=== PATIENT | female | born 1985 | race Caucasian/White ===

== ENCOUNTER 2017-09-24 18:24 | Emergency (ER) | payer BC ==
[2017-09-24 18:39] VITALS: BP 118/76; BMI 27.4
[2017-09-24] MEDS ORDERED: ADACEL TDaP IM ONE ×2 (18:39→18:40)
[2017-09-24] MEDS ORDERED: NEOSPORIN OINT TOP ONE (18:55)
[2017-09-24] MEDS ORDERED: NEOSPORIN OINT ONE (18:56)
--- NOTE | 2017-09-24 19:12 | DR.LACERAT ---
HPI - Time Seen Time seen: 19:00 - Primary Care Physician Primary Care Physician: [email or web address] - HPI Comment HPI Comment: HAPPEN AT HOME WHEN PATIENT GOT OUT OF BATH TUB AND INJURED TOES. ICM LACERATION PRESENT. - Complaints Chief Complaint Doctors Comments: LACERATION RIGHT 4TH WEB SPACE AND CONTUSION LT 5TH TOE. Chief Complaint:: laceration to lt foot between 4th and 5th toe appox 1 cm - Reviewed Nurses Notes Reviewed: Yes - Source History Provided: Patient - Mode of Arrival Mode of Arrival: Ambulatory - Location Left Foot Wound's Depth, Shape: Linear - Timing Onset of Chief Complaint: 09/24/17 - Context Mechanism: Crush Tetanus Vaccination: No - Severity Pain Severity: Moderate Bleeding:: Controlled - Associated Signs and Symptoms Associated Signs and Symptoms: None PMH - PMH Past Medical History: No Past Surgical History: No - Family History History of Family Medical Conditions: Yes Family Medical History: [place], Coronary Artery Disease, Heart Failure, Hypertension - Social History Does any household member use tobacco: No Alcohol Use: None Do you use any recreational Drugs:: No Lives With: Family Lives Where: Home - infectious screening In the last 2 months have you had wt loss of >10#?: NO Have you had fever, night sweats or hemotysis?: No Have you traveled outside the country in the last 6 months?: No Isolation: Standard ROS - Review of Systems Constitutional: No Symptoms Reported Eyes: No Symptoms Reported ENTM: No Symptoms Reported Respiratoy: No Symptoms Reported Cardiovascular: No Symptoms Reported Gastrointestinal/Abdominal: No Symptoms Reported Genitourinary: No Symptoms Reported Neurological: No Symptoms Reported Musculoskeletal: Left, Foot Integumentary: Change in Color (1CM LAC LT 4TH WEB SPACE.) Hematologic/Lymphatic: No Symptoms Reported Endocrine: No Symptoms Reported All Other Systems: Reviewed and Negative PE - Vital Signs Vitals: Temperature 978 F Pulse Rate 102 Respiratory Rate 18 Blood Pressure [] 115/62 Blood Pressure 118/76 O2 Sat by Pulse Oximetry 100 - General Limitations: No Limitations General Appearance: Alert - Head Head Exam: Normal Inspection - Eyes Eye exam: Normal Appearance - Neck Neck Exam: Trachea Midline - Chest Chest Inspection: Symmetric Chest Wall Rise - Extremities Extremities Exam: Tenderness (LT 5TH TOE TENDER.ESTELA WITH PAIN.) - Neurologic Neurological Exam: Alert, Oriented X3 - Psychiatric Psychiatric Exam: Normal Affect, Normal Mood - Skin Skin Exam: Erythema, Other (ICM LAC 4TH WEB SPACE LT FOOT.) MDM - Differential Diagnosis Differential Diagnosis: Contusion, Laceration Course - Treatment Treatment: SEE ORDERS. - Education/Counseling Education/Counseling: Patient, Education Educated On: Diagnosis, Needs for Follow Up Procedures - Laceration/Wound Repair Left Foot Wound Length (cm): 1 Wound's Depth, Shape: Linear Wound Explored: contaminated Betadine Prep?: Yes Anesthesia: 1% Lidocaine Volume Anesthetic (ccs): 3 Wound Repaired With: sutures Suture Size/Type: 4:0, [place] Number of Sutures: 3 Layer Closure?: No Sterile Dressing Applied?: Yes Splint Applied?: No Sling Applied?: No - Diagnosis Discharge Problem: Laceration of left foot Qualifiers: Encounter type: initial encounter Qualified Code(s): S91.312A - Laceration without foreign body, left foot, initial encounter - Discharge Plan Disposition: HOME, SELF-CARE Condition: Stable Prescriptions: Cephalexin [KEFLEX CAP 500 MG *] 500 mg PO TID #30 cap Ibuprofen [MOTRIN TAB 600 MG *] 600 mg PO TID PRN #30 tab PRN Reason: Pain/Inflammation Tramadol HCl 50 mg PO Q8H #15 tablet - Follow ups/Referrals Follow ups/Referrals: FATUMA KNOWLES [Primary Care Provider] - 3 days - Instructions Instructions: Laceration Care, Adult, [id number] Additional Instructions: RETURN TO ED IF WORSE. SUTURE OUT IN 10 DAYS
[2017-09-24] MEDS ORDERED: KEFLEX CAP 500 MG PO ONE ×2 (19:15→19:18)
[2017-09-24] MEDS ORDERED: ULTRAM PO ONE (19:15)
[2017-09-24] MEDS ORDERED: MOTRIN TAB 600 MG PO ONE ×2 (19:16→19:18)
[2017-09-24] MEDS ORDERED: ULTRAM ONE (19:19)
== END 2017-09-24 19:23 | disposition home or self-care (01) ==
LOC: ER 18:28
PROC: 0YQN0ZZ Repair Left Foot, Open Approach (ICD-10-PCS; principal; 2017-09-24)
DX: S91.312A Laceration without foreign body, left foot, initial encounter (principal); X58.XXXA Exposure to other specified factors, initial encounter; Y92.009 Unspecified place in unspecified non-institutional (private) residence as the place of occurrence of the external cause
CPT/HCPCS: 90471; 99282; 99283